=== PATIENT | female | born 1975 | race Caucasian/White ===

== ENCOUNTER 2017-10-19 06:37 | Emergency (ER) | payer MEDICAID ==
[~2017-10-19] VITALS: Ht 157.5 cm; Wt 101.0 kg
[~2017-10-19 06:37] MED LIST: CYCL-1 PO; DIAZ5TAB PO; HYDR-569 PO; MECL-127 PO; ONDA4TAB12 PO; ONDA8TAB9 PO; ZOF4T PO
[2017-10-19] MEDS ORDERED: PRED5TAB PO (08:35)
[2017-10-19] MEDS ORDERED: ALBU8HFA PO (08:35)
[2017-10-19] MEDS ORDERED: DOXY100C43 PO (08:35)
[2017-10-19] MEDS ORDERED: ipratropium/albuterol 3ml nebule NEB ONE (08:40)
[2017-10-19] MEDS ORDERED: dexamethasone 4mg tablet PO ONE (08:40)
[2017-10-19 09:43] VITALS: BP 150/71
== END 2017-10-19 09:54 | disposition home or self-care (01) ==
LOC: ER 06:38
DX: J22 Unspecified acute lower respiratory infection (principal); J20.9 Acute bronchitis, unspecified; J32.9 Chronic sinusitis, unspecified; E78.00 Pure hypercholesterolemia, unspecified; I10 Essential (primary) hypertension; E11.9 Type 2 diabetes mellitus without complications; Z87.891 Personal history of nicotine dependence; Z79.899 Other long term (current) drug therapy
CPT/HCPCS: 71046; 87070; 94640; 94760; 99285; J8540

== ENCOUNTER 2018-07-20 10:58 | Emergency (ER) | payer MEDICAID, OTHER ==
[~2018-07-20] VITALS: Ht 160 cm; Wt 91.8 kg
[~2018-07-20 10:58] MED LIST changes: +HYDR-4383 PO; -HYDR-569 PO; +PRED5TAB PO
[2018-07-20 11:01] VITALS: BP 133/81
== END 2018-07-20 12:13 | disposition home or self-care (01) ==
LOC: ER 10:58
DX: M75.41 Impingement syndrome of right shoulder (principal); M79.601 Pain in right arm; R53.1 Weakness; E78.00 Pure hypercholesterolemia, unspecified; I10 Essential (primary) hypertension; E11.9 Type 2 diabetes mellitus without complications; Z79.899 Other long term (current) drug therapy; X58.XXXA Exposure to other specified factors, initial encounter; Y93.89 Activity, other specified; Y92.89 Other specified places as the place of occurrence of the external cause; Y99.8 Other external cause status
CPT/HCPCS: 29125; 99283

== ENCOUNTER 2020-01-11 16:39 | Emergency (ER) | payer MEDICAID ==
[~2020-01-11] VITALS: Ht 160 cm; Wt 69.0 kg
[2020-01-11 16:51] VITALS: BP 141/70
[2020-01-11] MEDS ORDERED: AMOX500C2 PO (17:16)
== END 2020-01-11 17:27 | disposition home or self-care (01) ==
LOC: ER 16:40
DX: H66.92 Otitis media, unspecified, left ear (principal); E78.00 Pure hypercholesterolemia, unspecified; I10 Essential (primary) hypertension; E11.9 Type 2 diabetes mellitus without complications; F12.90 Cannabis use, unspecified, uncomplicated; Z79.899 Other long term (current) drug therapy
CPT/HCPCS: 99283

== ENCOUNTER 2021-05-06 18:03 | Emergency (ER) | payer MEDICAID ==
[~2021-05-06] VITALS: Ht 160 cm; Wt 89.5 kg
[2021-05-06 19:12] VITALS: BP 152/81
[2021-05-06 19:34] LABS: URINE HCG NEGATIVE (NEG)
[2021-05-06 19:40] LABS: CLARITY,URINE CLOUDY (Clear); COLOR,URINE YELLOW (Yellow); GLUCOSE, URINE NEGATIVE (Neg); KETONES,URINE NEGATIVE (Neg); LEUKOCYTE ESTERASE ,URINE MODERATE (Neg); NITRITES, URINE POSITIVE (Neg); OCCULT BLOOD,URINE TRACE-INTACT (Neg); PH,URINE 6.5 (4.8-8.0); PROTEIN,URINE TRACE mg/dl (Neg); UA COLLECTION TYPE CLN CATCH MIDSTREAM; UROBILINOGEN,URINE 0.2 E.U/dL (0.2-1.0)
[2021-05-06 19:48] LABS: BACTERIA,URINE 3+ /HPF (Neg); SQUAMOUS EPITHELIAL CELL,UR FEW /LPF (FEW); WBC,URINE 30-50 /HPF (0-4)
[2021-05-06 23:38] LABS: BASOPHILS # (AUTO) 0.1 X10'3 (0-0.2); BASOPHILS % (AUTO) 0.7 % (0-1); EOSINOPHILS # (AUTO) 0.5 X10'3 (0-0.9); EOSINOPHILS % (AUTO) 4.4 % (0-6); HEMOGLOBIN 14.4 g/dl (12.0-16.0); LYMPHOCYTES # (AUTO) 4.3 X10'3 (1.1-4.8); LYMPHOCYTES % (AUTO) 35.2 % (21-51); MEAN CORPUSCULAR HEMOGLOBIN 30.4 PG (27.0-31.0); MEAN CORPUSCULAR HGB CONC 33.5 g/dL (33.0-36.5); MEAN CORPUSCULAR VOLUME 90.5 FL (78-98); MONOCYTES # (AUTO) 0.8 X10'3 (0-0.9); MONOCYTES % (AUTO) 6.2 % (2-12); NEUTROPHILS # (AUTO) 6.6 X10'3 (1.8-7.7); NEUTROPHILS % (AUTO) 53.5 % (42-75); PLATELET COUNT 249 X10'3 (140-440); RED BLOOD COUNT 4.75 X10'6 (4.20-5.60); RED CELL DISTRIBUTION WIDTH 13.4 % (11.5-14.5); WHITE BLOOD COUNT 12.3 X10'3 (4.5-11.0)
[2021-05-06 23:46] LABS: ALBUMIN 4.1 G/DL (3.4-5.0); ANION GAP 7 (8-16); BLOOD UREA NITROGEN 19 MG/DL (7-18); BUN/CREATININE RATIO 18.1 (6.6-38.0); CALCIUM 8.9 MG/DL (8.5-10.1); CHLORIDE 107 MMOL/L (99-107); CREATININE 1.05 MG/DL (0.40-0.90); GLUCOSE 125 MG/DL (70-104); POTASSIUM 3.6 MMOL/L (3.5-5.1); SODIUM 141 MMOL/L (135-145); TOTAL CARBON DIOXIDE 26.6 MMOL/L (24-32); eGFR 57 ML/MIN
[2021-05-07] MEDS ORDERED: CEPH-585 PO (00:40)
[2021-05-07] MEDS ORDERED: cephalexin 500mg capsule PO ONE (00:40)
== END 2021-05-07 01:27 | disposition home or self-care (01) ==
LOC: ER 18:04
DX: N12 Tubulo-interstitial nephritis, not specified as acute or chronic (principal)
CPT/HCPCS: 36415; 74176; 80048; 81001; 81025; 85025; 87077; 87088; 87186; 99284